=== PATIENT | male | born 1950 | race Two or more races ===

== ENCOUNTER 2018-02-21 10:07 | Outpatient (CLI) | payer OTHER ==
[~2018-02-21 10:07] MED LIST: LOPRESSOR25 MG PO; LOTRISONE CREAM45 GM TOP; NeurRONTin 100mg cap PO; NeurRONTin 250MG/5ML PO; VASOTEC10 MG
== END 2018-02-21 10:10 | disposition home or self-care (01) ==
LOC: LAB 10:07
DX: N18.3 Chronic kidney disease, stage 3 (moderate) (principal); I10 Essential (primary) hypertension

== ENCOUNTER 2018-02-21 11:03 | Outpatient (CLI) | payer OTHER | END 2018-02-21 11:16 | disposition home or self-care (01) | LOC: SONOGRAMA 11:03 | DX: N18.3 Chronic kidney disease, stage 3 (moderate) (principal) ==